=== PATIENT | female | born 1965 | race Caucasian/White ===

== ENCOUNTER 2025-01-16 21:21 | Inpatient (IN) | payer BC ==
[~2025-01-16] VITALS: Ht 172.7 cm; Wt 57.6 kg
[2025-01-16] MEDS: MORPHINE SULFATE 4 MG/1 ML DISP.SYRIN IV ONE (21:42)
[2025-01-16] MEDS: IV NORMAL SALINE 1000 ML BAG IV ONE (21:42)
[2025-01-16] MEDS: ONDANSETRON 4 MG/2 ML VIAL IV ONE (21:42)
[2025-01-16 22:01] LABS: CREATININE 0.7 mg/dL (0.6-1.3); SODIUM SERUM 141.0 mmol/L (136-145); UREA NITROGEN, BLOOD 15.0 mg/dL (7-18)
[2025-01-16 22:02] LABS: PLATELET COUNT (AUTO) 235 K/uL (179-408); RED BLOOD CELL COUNT(AUTO) 4.53 MIL/uL (3.63-4.92); RED CELL DISTRIBUTION WIDTH 12.8 % (12.3-17.7); WHITE BLOOD COUNT (AUTO) 12.2 K/uL (3.8-11.8)
[2025-01-16 22:06] LABS: ASPARTATE AMINOTRANSFERASE 12.0 U/L (15-37); TOTAL PROTEIN, SERUM 7.4 g/dL (6.4-8.2)
[2025-01-16] MEDS ORDERED: SWABABLE VALVE TRANSFER SET EA MC ONE (22:34)
[2025-01-16] MEDS ORDERED: IOHEXOL 300MG/ML 100 ML INFUS..BTL ONE (22:34)
[2025-01-16] MEDS ORDERED: IV NORMAL SALINE 250 ML IV ONE (22:34)
[2025-01-16 22:55] LABS: *BILIRUBIN,URIN NEGATIVE (NEGATIVE); *BLOOD, URINE NEGATIVE (NEGATIVE); *CLARITY,URINE CLEAR (CLEAR); *COLOR,URINE YELLOW (YELLOW); *KETONES,URINE 1+ (NEGATIVE); *PROTEIN,URINE NEGATIVE (NEGATIVE); *UROBILINOGEN,URINE 0.2 E.U./dl (NORMAL); LEUKOCYTE ESTERASE ,URINE NEGATIVE (NEGATIVE); NITRITE, URINE NEGATIVE (NEGATIVE); UGLUCOSE NEGATIVE (NEGATIVE)
[2025-01-17] MEDS ORDERED: ESTR0.5T PO (00:17)
[2025-01-17] MEDS ORDERED: METOCLOPRAMIDE HCL 10 MG/2 ML VIAL ONE (00:26)
[2025-01-17] MEDS ORDERED: MORPHINE SULFATE 4 MG/1 ML DISP.SYRIN ONE (00:26)
[2025-01-17] MEDS ORDERED: PIPERACILLIN/TAZOBACTAM/D5W 50 ML IV ONE (00:26)
[2025-01-17] MEDS: METOCLOPRAMIDE HCL 10 MG/2 ML VIAL IV ONE (00:33)
[2025-01-17] MEDS: MORPHINE SULFATE 4 MG/1 ML DISP.SYRIN IV ONE (00:33)
[2025-01-17] MEDS: PIPERACILLIN SODIUM/TAZOBACTAM 3.375 G in IV DEXTROSE 5% 50 ML IV ONE ×3 (00:41→08:57)
[2025-01-17] MEDS ORDERED: ONDANSETRON 4 MG/2 ML VIAL IV PRN ×2 (01:30→03:45)
[2025-01-17] MEDS ORDERED: METOCLOPRAMIDE HCL 10 MG/2 ML VIAL IV PRN (01:30)
[2025-01-17] MEDS ORDERED: ACETAMINOPHEN 650 MG SUPP.RECT RC PRN (01:30)
[2025-01-17] MEDS ORDERED: MAGNESIUM SULFATE/D5W 100 ML ONE (02:19)
[2025-01-17] MEDS ORDERED: LIDOCAINE 2% 100 MG/5 ML SYRINGE ONE (02:19)
[2025-01-17] MEDS ORDERED: MIDAZOLAM HCL 2 MG/2 ML VIAL ONE (02:20)
[2025-01-17] MEDS ORDERED: FENTANYL CITRATE 100 MCG/2 ML AMPUL ONE (02:20)
[2025-01-17] MEDS ORDERED: FAMOTIDINE. 20 MG/2 ML VIAL IV ONE (02:20)
[2025-01-17] MEDS ORDERED: KETAMINE HCL 500 MG/5 ML VIAL ONE (02:20)
[2025-01-17] MEDS ORDERED: ROCURONIUM BROMIDE 50 MG/5 ML VIAL ONE (02:20)
[2025-01-17] MEDS ORDERED: ALBUMIN HUMAN 5% 250 ML ONE ×2 (02:21→03:12)
[2025-01-17] MEDS ORDERED: METRONIDAZOLE 500 MG/NS 100ML 100 ML IV ONE (02:56)
[2025-01-17] MEDS ORDERED: PROPOFOL 200 MG/20 ML BOTTLE ONE (03:06)
[2025-01-17] MEDS ORDERED: LIDOCAINE-MPF 2% 5 ML VIAL ONE (03:06)
[2025-01-17] MEDS ORDERED: CEFAZOLIN 1 G VIAL ONE (03:06)
[2025-01-17] MEDS ORDERED: PHENYLEPHRINE 10 MG/1 ML VIAL ONE (03:06)
[2025-01-17] MEDS ORDERED: EPHEDRINE SULFATE 50 MG/ML AMPUL ONE (03:06)
[2025-01-17] MEDS ORDERED: DEXAMETHASONE SOD PHOSPHATE 4 MG INJ ONE (03:06)
[2025-01-17] MEDS ORDERED: ONDANSETRON 4 MG/2 ML VIAL ONE (03:06)
[2025-01-17] MEDS ORDERED: LIDOCAINE HCL 1% 20 ML VIAL ONE (03:08)
[2025-01-17] MEDS ORDERED: BUPIVACAINE/EPI PF 0.25% 10 ML VIAL IJ ONE (03:08)
[2025-01-17] MEDS ORDERED: HYDROMORPHONE 2 MG/1 ML DISP.SYRIN ONE (03:11)
[2025-01-17] MEDS ORDERED: HYDROMORPHONE 1 MG/1 ML DISP.SYRIN IV PRN (03:45)
[2025-01-17] MEDS ORDERED: SUGAMMADEX SODIUM 200 MG/2 ML VIAL IV ONE (03:49)
[2025-01-17] MEDS ORDERED: FLUMAZENIL 0.5 MG/5 ML VIAL ONE (04:10)
[2025-01-17 05:43] VITALS: BP 125/87
[2025-01-17] MEDS ORDERED: PIPERACILLIN SODIUM/TAZOBACTAM 3.375 G in IV DEXTROSE 5% 50 ML IV SCH (06:00)
[2025-01-17 07:03] VITALS: BP 107/68; TEMP 97.4; O2SAT 95
[2025-01-17 07:26] LABS: PLATELET COUNT (AUTO) 195 K/uL (179-408); RED BLOOD CELL COUNT(AUTO) 3.87 MIL/uL (3.63-4.92); RED CELL DISTRIBUTION WIDTH 12.8 % (12.3-17.7); WHITE BLOOD COUNT (AUTO) 7.3 K/uL (3.8-11.8)
[2025-01-17] MEDS: METRONIDAZOLE 500 MG/NS 100 ML PIGGYBACK IV ONE (07:30)
[2025-01-17 07:41] LABS: CREATININE 0.6 mg/dL (0.6-1.3); SODIUM SERUM 146.0 mmol/L (136-145); UREA NITROGEN, BLOOD 12.0 mg/dL (7-18)
[2025-01-17] MEDS: PANTOPRAZOLE SODIUM 40 MG VIAL IV SCH (08:57)
[2025-01-17] MEDS ORDERED: PROG100C8 PO (10:13)
[2025-01-17] MEDS ORDERED: ESTR1PAT27 TD (10:13)
[2025-01-17 11:28] VITALS: BP 121/63; TEMP 98; O2SAT 97
[2025-01-17] MEDS ORDERED: ESTRADIOL 0.05 MG TD SCH (12:15)
[2025-01-17 15:20] VITALS: BP 121/74; TEMP 98.7; O2SAT 98
[2025-01-17] MEDS: PIPERACILLIN SODIUM/TAZOBACTAM 3.375 G in IV DEXTROSE 5% 100 ML IV SCH (15:26)
[2025-01-17] MEDS: MORPHINE SULFATE 4 MG/1 ML DISP.SYRIN IV PRN (16:19)
[2025-01-17 19:25] VITALS: BP 119/78; TEMP 98.9; O2SAT 96
[2025-01-17] MEDS ORDERED: PROGESTERONE MICRONIZED 100 MG PO SCH (21:00)
[2025-01-18 06:28] VITALS: BP 122/80; TEMP 98.8; O2SAT 94
[2025-01-18 06:35] LABS: PLATELET COUNT (AUTO) 179 K/uL (179-408); RED BLOOD CELL COUNT(AUTO) 3.57 MIL/uL (3.63-4.92); RED CELL DISTRIBUTION WIDTH 13.6 % (12.3-17.7); WHITE BLOOD COUNT (AUTO) 8.9 K/uL (3.8-11.8)
[2025-01-18 06:50] LABS: CREATININE 0.5 mg/dL (0.6-1.3); SODIUM SERUM 144.0 mmol/L (136-145); UREA NITROGEN, BLOOD 13.0 mg/dL (7-18)
[2025-01-18 06:57] LABS: ASPARTATE AMINOTRANSFERASE 9.0 U/L (15-37); TOTAL PROTEIN, SERUM 6.0 g/dL (6.4-8.2)
[2025-01-18 11:26] VITALS: BP 124/78; TEMP 98.2; O2SAT 100
[2025-01-18 14:55] VITALS: BP 130/84; O2SAT 100
[2025-01-18 19:50] VITALS: BP 136/83; TEMP 98.5; O2SAT 98
[2025-01-18] MEDS: IV NS 1000 ML 1,000 ML IV PRN (21:44)
[2025-01-19 06:35] LABS: PLATELET COUNT (AUTO) 168 K/uL (179-408); RED BLOOD CELL COUNT(AUTO) 3.57 MIL/uL (3.63-4.92); RED CELL DISTRIBUTION WIDTH 13.0 % (12.3-17.7); WHITE BLOOD COUNT (AUTO) 7.7 K/uL (3.8-11.8)
[2025-01-19 06:45] LABS: CREATININE 0.5 mg/dL (0.6-1.3); SODIUM SERUM 143.0 mmol/L (136-145); UREA NITROGEN, BLOOD 10.0 mg/dL (7-18)
[2025-01-19 06:47] VITALS: BP 128/81; TEMP 97.8; O2SAT 97
[2025-01-19] MEDS: POTASSIUM CHLORIDE 20 MEQ POWDER PACKET PO ONE (10:03)
[2025-01-19 10:58] VITALS: BP 145/92; TEMP 98.4; O2SAT 100
[2025-01-19 12:50] LABS: ASPARTATE AMINOTRANSFERASE 14.0 U/L (15-37); TOTAL PROTEIN, SERUM 5.7 g/dL (6.4-8.2)
[2025-01-19 15:03] VITALS: BP 127/80; TEMP 98.2; O2SAT 98
[2025-01-19 19:30] VITALS: BP 119/81; TEMP 98.5; O2SAT 98
[2025-01-20 06:40] LABS: PLATELET COUNT (AUTO) 196 K/uL (179-408); RED BLOOD CELL COUNT(AUTO) 3.74 MIL/uL (3.63-4.92); RED CELL DISTRIBUTION WIDTH 13.2 % (12.3-17.7); WHITE BLOOD COUNT (AUTO) 7.1 K/uL (3.8-11.8)
[2025-01-20 06:55] VITALS: BP 159/96; TEMP 98.5; O2SAT 97
[2025-01-20 07:10] LABS: CREATININE 0.7 mg/dL (0.6-1.3); SODIUM SERUM 144.0 mmol/L (136-145); UREA NITROGEN, BLOOD 12.0 mg/dL (7-18)
[2025-01-20 08:48] VITALS: BP 135/85; TEMP 97.4; O2SAT 97
== END 2025-01-20 14:50 | disposition home or self-care (01) | DRG 351 ==
LOC: ER 21:35 → MEDSURG3 01-17 01:03
PROVIDERS: ADMIT Registered Nurse Psychiatric/Mental Health; ATTEND Nurse Practitioner Acute Care
PROC: 0YU50JZ Supplement Right Inguinal Region with Synthetic Substitute, Open Approach (ICD-10-PCS; principal; 2025-01-17 02:30)
DX: K40.30 Unilateral inguinal hernia, with obstruction, without gangrene, not specified as recurrent (principal); E44.0 Moderate protein-calorie malnutrition; R17 Unspecified jaundice; K56.0 Paralytic ileus; E88.09 Other disorders of plasma-protein metabolism, not elsewhere classified; D72.829 Elevated white blood cell count, unspecified; Z83.79 Family history of other diseases of the digestive system
CPT/HCPCS: 36415; 71045; 83690; 83735; 84100; 85025; 85730; 87040; A4649; C1781; G0378; J0690; J1100; J1171; J1308; J2003; J2250; J2270; J2405; J2470; J2543; J2765; J3010; J3475; J3490; J7040; P9045; Q9967